=== PATIENT | female | born 1960 | race Caucasian/White ===

== ENCOUNTER → 2017-02-15 | Outpatient (CLI) | payer BC ==
[~2017-02-15] MED LIST: CALC-20 PO; COEN10CA5 PO; DICL-201 PO; DTRSR/10 PO; FEXO1TAB46 PO; LISI-461 PO; MAGN1CAP2 PO; OMEG10007 PO; ONDA4TAB7 SL; TNR25 PO; TRIA1SPR2 NAE
--- NOTE | 2017-02-15 15:09 | MAMMOGRAPHY REPORT ---
BILATERAL DIGITAL DIAGNOSTIC MAMMOGRAM TOMOSYNTHESIS WITH CAD: 02/15/2017 CLINICAL HISTORY: History of right breast stereotactic biopsy October 2014 which yielded flat epith elial atypia. The patient has had 2 surgical consultations but has declined surgical excision of th e region. 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 The patient reports no current complaints. TECHNIQUE: Breast tomosynthesis in addition to standard 2D mammography was performed. Current study was also evaluated with a Computer Aided Detection (CAD) system. Bilateral CC and MLO 2-D and kenneth synthesis images and spot magnification right cc and ML views were obtained. COMPARISON: Comparison is made to exams dated: 09/05/2016 ultrasound, 09/05/2016 mammogram, 02/10/20 16 mammogram, 02/07/2016 mammogram, and 02/02/2014 mammogram - [facility]. BREAST COMPOSITION: The tissue of both breasts is heterogeneously dense, which may obscure small ma sses. FINDINGS: A biopsy marker clip is again noted in the right upper outer quadrant from prior stereotac tic biopsy which yielded atypia. There are residual faint calcifications in the right upper outer q uadrant in a segmental distribution, which are ill-defined but likely measure approximately 4.5-5 cm in extent. The calcifications do not appear significantly changed compared to prior spot magnifica tion views dating back to January 2014. The remainder of both breasts are stable compared to prior exams, without suspicious masses, calcifi cations, or areas of architectural distortion noted. Other scattered bilateral benign-appearing jose cifications are not significantly changed. IMPRESSION: ACR BI-RADS CATEGORY 4: SUSPICIOUS 1. Status post right breast stereotactic biopsy 2013 which yielded flat epithelial atypia. Residual calcifications in the right upper outer quadrant are stable on spot magnification views dating back to January 2014. The patient has had surgical consultations but did not undergo surgical excisional b iopsy to exclude the possibility of DCIS. Although the calcifications are stable, they remain indet erminate and surgical excision is still recommended. If the patient does not undergo surgical excis ion, then consider continued diagnostic mammographic follow-up, which could be performed in 6-12 mon ths. 2. No mammographic evidence of malignancy in the left breast. A phone call was made to the physician's office to confirm faxed results were received. The patient has been verbally notified of the results. Approximately 10% of breast cancers are not detected with mammography. A negative mammographic repor t should not delay biopsy if a clinically suggestive mass is present. Maribel Maria M.D. ah/:02/15/2017 14:46:11 Lead Producer: Maria Del Carmen DIEGO)(Billie), [facility] letter sent: Abnormal 4/5 BI-RADS Code: ACR BI-RADS Category 4: Suspicious
== END | disposition home or self-care (01) ==
LOC: C.MAMM 14:01
PROVIDERS: ATTEND Surgery
DX: N64.89 Other specified disorders of breast (principal); R92.0 Mammographic microcalcification found on diagnostic imaging of breast

== ENCOUNTER → 2017-03-27 | Outpatient (CLI) | payer BC ==
--- NOTE | 2017-03-27 16:56 | DIAGNOSTIC IMAGING REPORT ---
RIGHT HAND 3 VIEWS CLINICAL HISTORY: Right hand pain. Clinical concern for arthritis. FINDINGS: 3 views of the right hand are obtained. No prior studies are available for comparison at the time of dictation. The skeletal structures are well mineralized. No fracture is seen. Minimal osteoarthritic change is present involving the interphalangeal joints. The joint spaces of the hand are otherwise well-maintained. No bony erosion is identified. The overlying soft tissues are within normal limits. IMPRESSION: Minimal arthritic change as above. No acute bony abnormality is seen. Electronically signed by: Randall Scales M.D. 03/27/2017 4:55 PM Dictated Date/Time: 03/27/2017 4:54 PM
--- NOTE | 2017-03-27 16:57 | DIAGNOSTIC IMAGING REPORT ---
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 COMPARISON: None FINDINGS: Alignment of the left hand is anatomic. No fracture or suspicious lesion is present. A small sclerotic focus within the proximal phalanx of left second finger is benign. No erosions are identified. Minimal joint space narrowing and osteophytosis is noted within several articulations of the left hand. IMPRESSION: 1. No radiographic evidence of an erosive/inflammatory arthropathy within the left hand. 2. 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 Electronically signed by: Jackson Chiang M.D. 03/27/2017 4:56 PM Dictated Date/Time: 03/27/2017 4:54 PM
[2017-03-27 17:03] LABS: C-REACTIVE PROTEIN < 0.29 mg/dl (0-0.29); RHEUMATOID FACTOR < 10.0 U/mL (0-15)
[2017-04-02 13:10] LABS: ANTI-CENTROMERE AB <1.0 NEG AI (<1.0 NEG); ANTI-SS-A <1.0 NEG AI (<1.0 NEG); ANTI-SS-B <1.0 NEG AI (<1.0 NEG); DNA ds CRITHIDIA NEGATIVE (NEGATIVE); Sm Antibody <1.0 NEG AI (<1.0 NEG)
== END | disposition home or self-care (01) ==
LOC: C.RAD1850 16:05
PROVIDERS: ATTEND Internal Medicine Rheumatology
DX: M02.30 Reiter's disease, unspecified site (principal); N30.10 Interstitial cystitis (chronic) without hematuria; M35.00 Sjogren syndrome, unspecified

== ENCOUNTER → 2017-04-05 | Outpatient (CLI) | payer BC | END | disposition home or self-care (01) | LOC: C.LABSPEC 17:15 | PROVIDERS: ATTEND Nurse Practitioner Family | DX: R35.0 Frequency of micturition (principal) ==

== ENCOUNTER → 2017-04-10 | Outpatient (CLI) | payer BC ==
--- NOTE | 2017-04-10 16:44 | DIAGNOSTIC IMAGING REPORT ---
LEFT KNEE 3 VIEWS CLINICAL HISTORY: Left knee pain COMPARISON: None. DISCUSSION: No fractures or dislocations are visualized. There are no erosive or destructive changes. There is no radiographic evidence of a significant joint effusion. IMPRESSION: No significant bony abnormalities. Electronically signed by: Rakesh Worthy M.D. 04/10/2017 4:42 PM Dictated Date/Time: 04/10/2017 4:42 PM
== END | disposition home or self-care (01) ==
LOC: C.RAD1850 16:31
PROVIDERS: ATTEND Internal Medicine Rheumatology
DX: M35.00 Sjogren syndrome, unspecified (principal); M25.562 Pain in left knee

== ENCOUNTER → 2017-07-12 | Outpatient (CLI) | payer BC ==
[2017-07-12 17:45] LABS: BASO % 0.1 %; BASO ABS # 0.01 K/uL (0-0.2); COMPLETE YES; EOS % 1.5 %; IG% 0.1 %; LYMPH % 44.6 %; LYMPH ABS # 3.62 K/uL (1.2-3.4); MEAN CELL VOLUME 88.4 fL (80-100); MEAN CORPUSCULAR HEMOGLOBIN 31.1 pg (25-34); MEAN CORPUSCULAR HGB CONC 35.1 g/dl (32-36); MEAN PLATELET VOLUME 10.2 fL (7.4-10.4); MONO % 9.2 %; NEUT % 44.5 %; PLATELET COUNT 237 K/uL (130-400); RED BLOOD COUNT 4.41 M/uL (4.2-5.4); WHITE BLOOD COUNT 8.12 K/uL (4.8-10.8)
[2017-07-12 18:09] LABS: ALT/SGPT 45 U/L (12-78); AST/SGOT 28 U/L (15-37); CREATININE 0.92 mg/dl (0.60-1.20)
== END | disposition home or self-care (01) ==
LOC: C.LAB1850 16:36
PROVIDERS: ATTEND Internal Medicine Rheumatology
DX: H04.123 Dry eye syndrome of bilateral lacrimal glands (principal); R35.0 Frequency of micturition; M02.30 Reiter's disease, unspecified site

== ENCOUNTER → 2017-09-10 | Outpatient (CLI) | payer BC ==
[2017-09-10 17:53] LABS: BASO % 0.3 %; BASO ABS # 0.02 K/uL (0-0.2); COMPLETE YES; EOS % 1.4 %; IG% 0.1 %; LYMPH % 35.4 %; LYMPH ABS # 2.49 K/uL (1.2-3.4); MEAN CORPUSCULAR HEMOGLOBIN 31.5 pg (25-34); MEAN CORPUSCULAR HGB CONC 33.9 g/dl (32-36); MEAN PLATELET VOLUME 10.3 fL (7.4-10.4); NEUT % 54.8 %; PLATELET COUNT 232 K/uL (130-400); RED BLOOD COUNT 3.87 M/uL (4.2-5.4); WHITE BLOOD COUNT 7.03 K/uL (4.8-10.8)
[2017-09-10 19:03] LABS: ALKALINE PHOSPHATASE 73 U/L (45-117); ALT/SGPT 37 U/L (12-78); AST/SGOT 26 U/L (15-37); CREATININE 1.08 mg/dl (0.60-1.20)
== END ==
LOC: C.LAB1850 16:38
PROVIDERS: ATTEND Internal Medicine Rheumatology
DX: H04.123 Dry eye syndrome of bilateral lacrimal glands (principal); M02.30 Reiter's disease, unspecified site; Z79.899 Other long term (current) drug therapy

== ENCOUNTER → 2018-01-08 | Outpatient (CLI) | payer OTHER ==
[2018-01-08 17:20] LABS: BASO % 0.2 %; BASO ABS # 0.02 K/uL (0-0.2); EOS % 1.9 %; EOS ABS # 0.18 K/uL (0-0.5); HEMATOCRIT 38.6 % (37-47); HEMOGLOBIN 13.6 g/dL (12.0-16.0); IG# 0.02 K/uL (0.00-0.02); LYMPH % 34.2 %; LYMPH ABS # 3.25 K/uL (1.2-3.4); MEAN CORPUSCULAR HEMOGLOBIN 32.1 pg (25-34); MEAN CORPUSCULAR HGB CONC 35.2 g/dl (32-36); MEAN PLATELET VOLUME 9.7 fL (7.4-10.4); MONO % 9.4 %; MONO ABS # 0.89 K/uL (0.11-0.59); NEUT % 54.1 %; NEUT ABS # 5.15 K/uL (1.4-6.5); PLATELET COUNT 251 K/uL (130-400); RED CELL DISTRIBUTION WIDTH CV 13.8 % (11.5-14.5); RED CELL DISTRIBUTION WIDTH SD 45.6 fL (36.4-46.3); WHITE BLOOD COUNT 9.51 K/uL (4.8-10.8)
[2018-01-08 17:42] LABS: ALT/SGPT 45 U/L (12-78); AST/SGOT 25 U/L (15-37); CREATININE 0.95 mg/dl (0.60-1.20)
== END | disposition home or self-care (01) ==
LOC: C.LAB1850 16:31
PROVIDERS: ATTEND Internal Medicine Rheumatology
DX: M02.30 Reiter's disease, unspecified site (principal); R39.9 Unspecified symptoms and signs involving the genitourinary system; Z79.899 Other long term (current) drug therapy

== ENCOUNTER → 2018-02-18 | Outpatient (CLI) | payer OTHER ==
--- NOTE | 2018-02-19 13:04 | MAMMOGRAPHY REPORT ---
BILATERAL DIGITAL DIAGNOSTIC MAMMOGRAM TOMOSYNTHESIS WITH CAD AND TARGETED RIGHT ULTRASOUND: 8 CLINICAL HISTORY: 58-year-old woman with a history of right breast microcalcifications. A needle loc alized excisional biopsy performed in the right upper outer middle one third of the breast on 0 yielded flat epithelial atypia and adjacent atypical ductal hyperplasia. A stereotactic biopsy als o in the right upper outer middle one third of the breast performed on 11/24/2014 yielded flat epithe lial atypia. However, the patient did not undergo a surgical excision after the stereotactic biopsy. She reports her mother also has a history of breast atypia. TECHNIQUE: Bilateral breast tomosynthesis in addition to standard 2D mammography was performed. Spot magnification right CC and ML views were also obtained. Current study was also evaluated with a [employer] Aided Detection (CAD) system. COMPARISON: Comparison is made to exams dated: 02/15/2017 mammogram, 09/05/2016 ultrasound, 6 mammogram, 02/10/2016 mammogram, 02/07/2016 mammogram, and 02/03/2015 mammogram - [facility]. BREAST COMPOSITION: The tissue of both breasts is heterogeneously dense, which may obscure small mas ses. FINDINGS: There is metallic biopsy marker clip in the upper outer middle one third of the right seema st. Faint amorphous microcalcifications are present both anterior and posterior to the biopsy marker clip in a segmental distribution spanning at least 3.6 cm in AP by 1.3 cm in craniocaudal dimension. When comparing to prior full-field views, the calcifications located lateral and posterior to the b iopsy marker clip appear increased. Although the spot magnification views appear generally stable da ting back to 2015, the calcifications appear increased comparing to the prior 2013 spot magnification views and therefore all of the calcifications remain indeterminate. Surgical excisional biopsy woul d be preferred, with bracketing of the microcalcifications but if the patient is still reluctant 1. To undergo excisional biopsy, would at least recommend repeat stereotactic biopsy of the microcalcifi cations located lateral and slightly posterior to the biopsy marker clip, which definitely appear inc reased. No obvious associated distortion, asymmetry or mass is identified. No other suspicious find ings identified throughout the remainder of the right breast or within the left breast. Targeted ultrasound was also performed in the right breast during this diagnostic evaluation, as the patient reported her breast surgeon felt an area of thickening in the lateral breast and she also fee ls the area of thickening herself. Targeted ultrasound was therefore performed in the 9:00 right anisa ast, 4 cm from the nipple. Other than an incidentally identified simple cyst in the 9:00 axis, 6 cm from the nipple measuring 5 mm, no other discrete solid or cystic mass or textural difference is appr eciated. IMPRESSION: ACR BI-RADS CATEGORY 4: SUSPICIOUS, TARGETED ULTRASOUND ACR BI-RADS CATEGORY 4: SUSPICIO US 1. Tissue sampling is recommended in the right breast in an area of biopsy-proven atypia in the uppe r outer middle one third of the breast, with increasing faint amorphous microcalcifications in a segm ental distribution. The patient did not undergo excisional biopsy after a stereotactic biopsy perfor med 11/24/2014 yielded flat epithelial atypia and therefore would recommend excisional biopsy with br acketing of the segmental microcalcifications. If the patient is still reluctant to undergo excision al biopsy, would at least recommend repeat stereotactic biopsy of the increasing calcifications locat ed lateral and posterior to the biopsy marker clip. 2. No mammographic evidence of malignancy in the left breast. 3. Clinical follow-up is also recommended for the reported thickening in the lateral right breast on clinical breast exam, although this is likely in the area of the prior stereotactic biopsy as well a s calcifications.. These results and recommendations were discussed with the patient at the time of the exam. She repor farideh she will discuss her options with her breast surgeon, Dr. Saravia, at time of follow-up on January 242017. Approximately 10% of breast cancers are not detected with mammography. A negative mammographic report should not delay biopsy if a clinically suggestive mass is present. Shayy Pakrs M.D. ay/:02/18/2018 13:36:47 Car Hopper: Joanne PETER(Asa)(Billie), [facility] letter sent: Abnormal 4/5 BI-RADS Code: ACR BI-RADS Category 4: Suspicious Ultrasound BI-RADS: ACR BI-RADS Category 4: Suspici ous
== END | disposition home or self-care (01) ==
LOC: C.MAMM 10:06
PROVIDERS: ATTEND Surgery
DX: R92.0 Mammographic microcalcification found on diagnostic imaging of breast (principal)